=== PATIENT | female | born 1940 | race Caucasian/White ===

== ENCOUNTER → 2024-11-12 | Outpatient (CLI) | payer MEDICARE, OTHER, SELFPAY ==
[2024-11-12 12:17] LABS: Basophils % (Auto) 1 % (0-2.5); Eosinophils # (Auto) 0.2 Thou/mm3 (0.0-0.5); Eosinophils % (Auto) 4 % (0-10); Hematocrit 34.5 % (36.0-46.0); Hemoglobin 11.6 g/dL (12.0-16.0); Immature Granulocytes % (Auto) 0 % (0-0); Immature Granulocytes Auto 0.01 Thou/mm3 (0.00-0.00); Lymphocytes # (Auto) 1.8 Thou/mm3 (1.0-4.8); Lymphocytes % (Auto) 33 % (10-50); Mean Corpuscular HGB Conc 33.6 g/dl (31.0-37.0); Mean Corpuscular Hemoglobin 28.5 pg (25.0-35.0); Mean Corpuscular Volume 85 fL (80-100); Monocytes # (Auto) 0.4 Thou/mm3 (0.0-0.8); Monocytes % (Auto) 7 % (0-12); Neutrophils % (Auto) 56 % (37-80); Nucleated Red Blood Cell % 0 /100 WBC (0); Platelet Count 321 Thou/mm3 (140-440); RDW Standard Deviation 41.4 fL (36.4-46.3); Red Blood Count 4.07 Miln/mm3 (4.00-5.20); White Blood Count 5.4 Thou/mm3 (3.6-11.0)
[2024-11-12 12:55] LABS: Alanine Aminotransferase 8 U/L (10-49); Albumin, Serum 4.3 gm/dL (3.4-4.8); Albumin/Globulin Ratio 1.7 (1.2-2.2); Alkaline Phosphatase 123 U/L (46-116); Anion Gap 7 (7-16); Aspartate Amino Transferase 20 U/L (0-34); BUN/Creatinine Ratio 17 Ratio (12-20); Bilirubin,Total 0.3 mg/dL (0.3-1.2); Blood Urea Nitrogen 15 mg/dL (9-23); Calcium 9.4 mg/dL (8.3-10.6); Calcium (Corrected) 9.4 mg/dL (8.5-10.1); Carbon Dioxide 29.2 mMol/L (20.0-31.0); Cardiac Risk Estimate 1.9 RATIO (3.7-5.6); Chloride 98 mMol/L (98-107); Cholesterol 208 mg/dL (132-200); Creatinine (Component) 0.9 mg/dL (0.6-1.3); Globulin 2.6 gm/dL (2.3-3.5); Glucose 87 mg/dL (74-106); HDL Cholesterol 110 mg/dL (40-60); LDL Cholesterol,Calculated 64 mg/dL (0-130); Osmolality,Calculated 268 (275-295); Potassium 4.8 mMol/L (3.4-5.1); Sodium 134 mMol/L (136-145); Thyroid Stimulating Hormone 1.78 uIU/mL (0.55-4.78); Total Protein 6.9 gm/dL (5.7-8.2); Triglycerides 169 mg/dL (30-150); eGFR > 60 See Note
== END | disposition home or self-care (01) ==
LOC: COPL 11:23
PROVIDERS: PCP Family Medicine; Referring Provider Family Medicine; Visit Provider Family Medicine
DX: Z13.1 Encounter for screening for diabetes mellitus (principal); E78.1 Pure hyperglyceridemia; D50.0 Iron deficiency anemia secondary to blood loss (chronic); E03.2 Hypothyroidism due to medicaments and other exogenous substances
CPT/HCPCS: 36415; 80053; 80061; 84443; 85025

== ENCOUNTER → 2025-03-17 | Outpatient (CLI) | payer MEDICARE, OTHER, SELFPAY ==
--- NOTE | 2025-03-17 14:44 | XR_ITS ---
Examination: Knee, left , 3 views Technique: Knee AP, lateral, oblique 3 views Date and time of exam: March 17, 2025 1456 hours Comparison October 12, 2015 INDICATIONS: Patient fell 3 days ago with injury to the knee, knee pain. FINDINGS: Total left knee arthroplasty. Satisfactory alignment No loosening of the prosthetic components 4.6 cm calcification in the posterior joint space, likely large ossified joint body IMPRESSION: No acute fracture
[2025-03-17 16:56] LABS: Basophils # (Auto) 0.0 Thou/mm3 (0.0-0.2); Basophils % (Auto) 0 % (0-2.5); Eosinophils # (Auto) 0.1 Thou/mm3 (0.0-0.5); Eosinophils % (Auto) 2 % (0-10); Hematocrit 30.6 % (36.0-46.0); Hemoglobin 10.1 g/dL (12.0-16.0); Immature Granulocytes Auto 0.02 Thou/mm3 (0.00-0.00); Lymphocytes # (Auto) 1.2 Thou/mm3 (1.0-4.8); Lymphocytes % (Auto) 25 % (10-50); Mean Corpuscular HGB Conc 33.0 g/dl (31.0-37.0); Mean Corpuscular Hemoglobin 27.6 pg (25.0-35.0); Mean Corpuscular Volume 84 fL (80-100); Monocytes # (Auto) 0.4 Thou/mm3 (0.0-0.8); Monocytes % (Auto) 8 % (0-12); Neutrophils # (Auto) 3.1 Thou/mm3 (1.8-7.7); Neutrophils % (Auto) 65 % (37-80); Nucleated Red Blood Cell # 0.00 Thou/mm3 (0.00-0.00); Nucleated Red Blood Cell % 0 /100 WBC (0); Platelet Count 337 Thou/mm3 (140-440); RDW Standard Deviation 40.1 fL (36.4-46.3); Red Blood Count 3.66 Miln/mm3 (4.00-5.20); White Blood Count 4.8 Thou/mm3 (3.6-11.0)
[2025-03-17 17:13] LABS: Free T4 (Free Thyroxine) 1.03 ng/dL (0.89-1.76); Thyroid Stimulating Hormone 2.01 uIU/mL (0.55-4.78)
== END | disposition home or self-care (01) ==
LOC: CDIM 14:27
PROVIDERS: PCP Family Medicine; Referring Provider Family Medicine; Visit Provider Family Medicine
DX: S89.92XA Unspecified injury of left lower leg, initial encounter (principal); W19.XXXA Unspecified fall, initial encounter
CPT/HCPCS: 36415; 73562; 84439; 84443; 85025

== ENCOUNTER → 2025-03-22 | Outpatient (CLI) | payer MEDICARE, OTHER, SELFPAY ==
[2025-03-22 14:16] LABS: OBS QC OK? Yes
[2025-03-22 18:33] LABS: OBS Developer Lot # 4-24-551749; OBS Performed By BF; Occult Blood, Stool Negative (Negative)
== END | disposition home or self-care (01) ==
LOC: SLDO 14:11
PROVIDERS: Referring Provider Family Medicine; Visit Provider Family Medicine
DX: Z12.11 Encounter for screening for malignant neoplasm of colon (principal)
CPT/HCPCS: 82270

== ENCOUNTER → 2025-03-31 | Outpatient (CLI) | payer MEDICARE, OTHER, SELFPAY ==
--- NOTE | 2025-03-31 14:26 | XR_ITS ---
EXAMINATION: Cervical spine, 5 views Technique: Cervical spine AP, AP odontoid, lateral, bilateral obliques, 5 views Exam date and time: March 31, 2025, 1429 hrs. Indications: Neck pain beginning 5 years ago. Findings: Adequate alignment cervical vertebral bodies. Severe osteopenia. Intact odontoid. No cervical fracture. Advanced disc narrowing C3-C4, C4-C5, C5-C6, C6-C7 with anterior and posterior osteophyte formation and moderate to advanced diffuse neuroforaminal stenosis Impression: Advanced degenerative disc disease C3-C4, C4-C5, C5-C6, C6-C7 with significant bilateral neural foraminal stenosis.
== END | disposition home or self-care (01) ==
LOC: CDIM 14:10
PROVIDERS: PCP Family Medicine; Referring Provider Family Medicine; Visit Provider Family Medicine
DX: M50.31 Other cervical disc degeneration, high cervical region (principal); M48.02 Spinal stenosis, cervical region
CPT/HCPCS: 72050

== ENCOUNTER → 2025-04-24 | Outpatient (CLI) | payer MEDICARE, OTHER, SELFPAY ==
--- NOTE | 2025-04-24 16:15 | XR_ITS ---
Examination: MRI cervical spine without intravenous contrast Date and time of exam: April 24, 2025, 1643 hrs. Indications: Neck pain radiating to the arms with numbness in the hands beginning 6 months ago Technique: Multiple axial and sagittal sections of the cervical spine to been obtained. T2 weighted sagittal sections, TR 3, 270, TE 117 T1-weighted sagittal sections, TR 500, TE 11 T1-weighted axial sections, TR 607, TE 12, axial sections TR 18, TE 27 and T2 weighted transverse sections, TR 3920, TE 122. Findings: Straightening normal cervical lordosis Advanced disc narrowing C3-C4, C4-C5, C5-C6, C6-C7 Diffuse cervical disc desiccation. No localized enlargement cervical cord C2-C3 advanced right neural foraminal stenosis C3-C4 2 mm central subarticular osteophyte disc complex with advanced bilateral neural foraminal stenosis C4-C5 4 mm central osteophyte disc complex, advanced bilateral neural foraminal stenosis C5-C6 2 mm central subarticular osteophyte disc complex, advanced right neural foraminal stenosis C6-C7 2 mm central subarticular osteophyte disc complex, advanced bilateral neural foraminal stenosis C7-T1 advanced right neural foraminal stenosis Impression: Advanced degenerative disc disease C3-C4, C4-C5, C5-C6, C6-C7 Advanced bilateral neural foraminal stenosis as above
== END | disposition home or self-care (01) ==
LOC: SMRI 16:00
PROVIDERS: PCP Family Medicine; Referring Provider Family Medicine; Visit Provider Family Medicine
DX: M50.31 Other cervical disc degeneration, high cervical region (principal); M48.02 Spinal stenosis, cervical region
CPT/HCPCS: 72141

== ENCOUNTER → 2025-06-10 | Outpatient (CLI) | payer MEDICARE, OTHER, SELFPAY | END | disposition home or self-care (01) | LOC: SLDO 14:17 | PROVIDERS: PCP Family Medicine; Referring Provider Family Medicine; Visit Provider Family Medicine | DX: N39.0 Urinary tract infection, site not specified (principal) | CPT/HCPCS: 87086 ==

== ENCOUNTER 2025-06-28 11:33 | Emergency (ER) | payer MEDICARE, OTHER, SELFPAY ==
[2025-06-28] VITALS (9 sets, daily range): BP systolic 110–174; BP diastolic 62–92; PULSE 85–98; RESP 14–19; TEMP 36.9; O2SAT 97–100; BMI 26.0
--- NOTE | 2025-06-28 11:42 | PD.EDADULT ---
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 She reports intermittent headaches ?for quite a while,? with worsening occipital/nape pain over the past week. According to her granddaughter, the patient has also experienced episodes of confusion and forgetfulness during this time. She takes aspirin 81 mg daily and denies use of any other anticoagulants. She denies fever, chills, chest pain, cough, dyspnea, abdominal pain, nausea, vomiting, diarrhea, or urinary symptoms. Related Data Home Medications ?Medication ?Instructions ?Recorded ?Confirmed amlodipine 5 mg tablet (Norvasc) 5 mg PO HS #0 tabs 10/16/13 06/28/25 celecoxib 200 mg capsule (Celebrex) 200 mg PO BID #0 caps 10/16/13 06/28/25 cholecalciferol (vitamin D3) 125 1 tab [employer] DAILY ##0 10/16/13 06/28/25 mcg (5,000 unit) tablet (Vitamin D3) conjugated estrogens 0.625 mg 0.625 mg PO QDAY #0 tabs 10/16/13 06/28/25 tablet (Premarin) simvastatin 40 mg tablet 1 tab PO HS ##0 10/16/13 06/28/25 aspirin 81 mg tablet,delayed 81 mg PO QDAY 01/11/20 06/28/25 release (Rasta Low Dose Aspirin) docusate sodium 100 mg capsule 100 mg PO QDAY 01/11/20 06/28/25 (Stool Softener) losartan 50 mg tablet 50 mg PO QDAY 01/11/20 06/28/25 nortriptyline 25 mg capsule 25 mg PO QDAY 01/11/20 06/28/25 levothyroxine 25 mcg tablet 25 mcg PO QDAY hypothryroid 06/28/25 06/28/25 Allergies Allergy/AdvReac Type Severity Reaction Status Date / Time No Known Allergies Allergy Verified 06/28/25 11:39 Review of Systems Review of Systems Systems Reviewed: All systems reviewed, normal except as documented Past Medical History Past Medical History CARDIAC: Positive Hypercholesterolemia, Edema (LEFT FOLLOWING KNEE SURGERY) and Hypertension GASTROINTESTINAL: Positive Gastrointestinal Disorders and Obesity GENITOURINARY: Positive Genitourinary Disorders and Kidney Stones REPRODUCTIVE: Positive Previous Pregnancies () MUSCULOSKELETAL: Positive Musculoskeletal Disorders and Arthritis (GENERALIZED) ENDOCRINE: Positive Endocrine Disorders and Hypothyroidism OTHER HISTORY: Positive Hospitalization, Falls, Measles and Mumps Family History FAMILY HISTORY: Positive Family Cancer (SISTER(BREAST CA),BROTHERS X2(UNKNOWN)) Surgical History SURGICAL: Positive Eye Surgery (BILATERAL CORNEAL TRANSPLANT), Joint Replacement, Neurologic Surgery (Aneurysm repair with coils) and Hysterectomy Social History SMOKING STATUS: Never smoker ED Exam General Limitations: Present no limitations General appearance: Present alert and in no apparent distress Head Head exam: Present atraumatic Eye Eye exam: Present normal appearance, PERRL and EOMI ENT ENT exam: Present normal exam, normal oropharynx and mucous membranes moist Neck Neck exam: Present normal inspection, full ROM and trachea midline Chest Chest inspection: Present normal inspection and symmetric chest wall rise Respiratory Respiratory exam: Present normal lung sounds bilaterally; Absent respiratory distress Cardiovascular Cardiovascular exam: Present regular rate, normal rhythm and normal heart sounds Abdominal Exam Abdominal exam: Present soft; Absent distention, tenderness or guarding Extremities Exam Extremities exam: Present normal inspection and full ROM Neurological Exam Neurological exam: Present alert, oriented X3, CN II-XII intact and other (strong in all extremities sensation intact, no focal neurodeficits) Psychiatric Psychiatric exam: Present normal affect and normal mood Skin Skin exam: Present warm, dry, intact and normal color Course Quality Measures none Orders Category Date Time Status CT Screening NOW Care 06/28/25 12:26 Completed Miscellaneous Nursing Order NOW Care 06/28/25 11:57 Completed Transfuse,blood/blood products NOW Care 06/28/25 12:27 Completed Referral - Optical Glass Etcher Stat Cons 06/28/25 11:[address] angio carotid w head w Stat Exams 06/28/25 12:25 Completed XR chest 1V post procedure Stat Exams 06/28/25 14:24 Completed CBC Stat Lab 06/28/25 12:00 Completed CMP [Comprehensive Metabolic Panel] Stat Lab 06/28/25 12:00 Completed INR [Prothrombin Time with INR] Stat Lab 06/28/25 12:00 Completed Type and Screen Stat Lab 06/28/25 12:46 Completed Nicardipine/Ns 20Mg Ivpb [Cardene Ivpb] Med 06/28/25 12:07 Discontinued 20 mg in 200 ml IV 5 mg/hr levETIRAcetam INJ [Keppra Inj] Med 06/28/25 12:26 Discontinued 1,000 mg IVP X1 ONE Vital Signs Vital signs: Vital Signs Temperature 98.4 F 06/28/25 11:55 Pulse Rate 90 06/28/25 11:55 Respiratory Rate 19 06/28/25 11:55 Blood Pressure 174/92 H 06/28/25 11:55 Pulse Oximetry (%) 100 06/28/25 11:55 Oxygen Delivery Method Room Air 06/28/25 11:55 Pulse ox is 100% on room air which is adequate. Critical Care Time Critical Care Time Critical Care Time: Yes Total Critical Care Time (min.): 35 Attestation: The high probability of sudden, clinically significant deterioration in the patient's condition required the highest level of my preparedness to intervene urgently. The services I provided to this patient were to treat and/or prevent clinically significant deterioration. Services included the following: chart data review, reviewing nursing notes and/or old charts, documentation time, regulatory consultant collaboration regarding findings and treatment options, medication orders and management, direct patient care, vital sign assessments and ordering, interpreting and reviewing diagnostic studies and lab tests. Aggregate critical care time includes only time during which I was engaged in work directly related to the patient's care, as described above, whether at bedside or elsewhere in the Emergency Department. It did not include time spent performing other reported procedures or the services of residents, students, nurses or physician assistants. Discharge Plan Plan Patient Disposition: [facility] Care [facility] Facility Pt Being Transferred to: [facility] Service Needed for Transfer: Neurosurgery Prescriptions/Referrals Prescriptions/Med Rec: No Action celecoxib [Celebrex] 200 MG capsule 200 mg PO BID Qty: 0 amlodipine [Norvasc] 5 MG tablet 5 mg PO HS Qty: 0 simvastatin 40 MG tablet 1 tab PO HS Qty: 0 conjugated estrogens [Premarin] 0.625 MG tablet 0.625 mg PO QDAY Qty: 0 cholecalciferol (vitamin D3) [Vitamin D3] 5,000 UNIT tablet 1 tab [employer] DAILY Qty: 0 losartan 50 mg Tablet 50 mg PO QDAY aspirin [Rasta Low Dose Aspirin] 81 mg Tablet,Delayed Release (Dr/Ec) 81 mg PO QDAY nortriptyline 25 mg Capsule 25 mg PO QDAY docusate sodium [Stool Softener] 100 mg Capsule 100 mg PO QDAY levothyroxine 25 mcg tablet 25 mcg PO QDAY Rx Instructions: 25mgc po q day Referrals: Aries Spaulding MD [Primary Care Provider, [facility]] - In 1 week Problem List Clinical Impression: Intracranial hemorrhage, Intracranial aneurysm Patient/Caregiver Discharge Instructions Print Language: Malian Stand Alone Forms: Keesha Award Info., Patient Portal Info Letter MDM Narrative MDM hospital course (for use when minimal MDM required): IMirella, elver scribing for and in the presence of Dr. White. Patient is an 85-year-old female with medical history notable for intracranial aneurysm status post coiling many years ago is in the emergency department with concerns for head bleed. Vital signs and exam as listed. CT scan done earlier today as an outpatient identified an intracranial hemorrhage, read as 14 mm focus of hemorrhage with edema in the right parietal lobe. Patient is on aspirin and Celebrex however no other blood thinners. Patient took her medications this morning. Patient was placed in resuscitation room, IV access obtained. Head of the bed kept at 45 degrees. There are no blood thinners to reverse. Will assess patient's platelets to see if platelets need to be transfused. Patient blood pressure on arrival was greater than 170. Placed patient on nicardipine drip with a systolic blood pressure goal for less than 140. Initiated transfer for neurosurgery, to a facility that can better assess spontaneous intracranial hemorrhages. Patient is hemodynamically stable not in distress. 1218: I spoke with Jocelynn, transfer nurse at [facility]. Discussed patients PMHx, HPI, ED course, exam findings, labs, and radiology results. States she will present the case to their neurosurgery team. 1224: I spoke with neurosurgeon Dr. Hillman at [facility]. Discussed patients PMHx, HPI, ED course, exam findings, labs, and radiology results. He recommends starting the patient on Keppra, 2 units of platelets, and CT angio head and neck. Requests we call back after CTA is resulted. 1228: CT made aware of stat CTA request. 1258: I updated family and patient on plan. 1435: CT angio has been performed and pending read. I spoke with our radiologist Dr. Milan and states he will read the images now. 1518: I spoke with neurosurgeon Dr. Hillman. Discussed CTA results. He is requesting the patient to be admitted to ICU there, receive DDAVP for platelets, and MRI brain w/wo contrast. Patient has been accepted for transfer. Clinical Information Provided by: patient and family (Daughter adds to HPI) Medical Records reviewed [facility] Medical Records additional comments: I reviewed ED visit on 09/21/2023 for sore throat Meds/Rx considered, not ordered None Labs/Rad/Tests considered, not ordered None Chronic Illness/Social Conditions which may negatively complicate care or outcome(s)-explain: None or not applicable EKG EKG not done Labs Labs: see narrative above Imaging Imaging interpretation: see narrative above Imaging Interpretation(s): OUTPATIENT HEAD CT PERFORMED TODAY Ordering Physician: Aries Spaulding MD Date of Service: 06/28/25 Procedure(s): CT head/brain wo con Accession Number(s): [id number] cc: Latrell Milan MD; Aries Spaulding MD~ Examination: CT brain head without contrast. 2-D sagittal coronal reconstructions Date and time of exam: June 28, 2025, 1043 hours INDICATIONS: Altered mental status today, history basilar artery aneurysm CTDI: vol (mGy): 45.8 DLP: (mGycm): 818 Technique: Multiple CT axial sections of the brain have been obtained, 5 mm slice thickness. Contrast has not been administered. 2-D sagittal, coronal reconstructions have been obtained Low dose protocols were performed. One or more of the following dose reduction techniques were used; automated exposure control, adjustment of the mA and/or KV according to patient size, use of iterative reconstruction technique. Findings: Small focus of hemorrhage, 14 mm in the right parietal lobe with surrounding edema Ventricles are not enlarged Embolization material at the base of the skull for aneurysm Cranial vault intact IMPRESSION: 14 mm focus of hemorrhage with edema in the right parietal lobe, differential would include idiopathic hemorrhage, hemorrhage within the tumor, clinical correlation advised Recommend CT brain scan post contrast follow-up, consider CTA brain post intravenous contrast Dictated By: Latrell Milan MD Signed By: <Electronically signed by Latrell Milan MD in OV> 06/28/25 1110 Ordering Physician: Patience White MD Date of Service: 06/28/25 Procedure(s): CT angio carotid w head w Accession Number(s): [id number] cc: Eduin Villafuerte MD; Patience White MD; Aries Spaulding MD~ EXAMINATION: CT angio carotid w head w ORDERING PROVIDER: Patience White MD HISTORY: aneurysmal bleed TECHNIQUE: CT scanner was used in the volumetric, helical non-contrast acquisition of the head with 2-D and 3-D reformats created on a separate workstation and submitted for interpretation. Institutional dose reducing protocols were utilized. Imaging was performed during arterial phase after the C7 Isovue-370 intravenously. RADIATION DOSE: DLP 111 mGy-cm COMPARISON: 11/27/2009 [address] head. 08/17/[address] head. 10/01/2022, CTA head. 04/27/2019, MRA brain. 11/30/2016, noncontrast CT head. 11/19/2019, CT chest. FINDINGS: No high-grade stenosis of the cervical carotid or vertebral arteries. Mild calcific atherosclerotic disease of the bilateral carotid bifurcations. Moderate calcific narrowing of the right vertebral artery origin. There is bovine arch variant anatomy with left common carotid artery origin of the right brachiocephalic. The left vertebral artery originates off the left subclavian artery. There is mild vascular calcifications of the internal carotid arteries. Proximal middle, anterior, and posterior cerebral arteries are patent. Anterior communicating artery is without aneurysmal dilation. There is a dominant right posterior communicating artery. Again seen is a 4 x 5 mm basilar tip aneurysm with adjacent coils, appearing similar in size dating to at least 04/27/2019. Proximal superior cerebellar arteries are patent. Proximal anterior inferior and posterior inferior cerebellar arteries are patent. No additional new intracranial aneurysms are identified. The hyperdense area within the right superior parietal lobule is better seen on same day noncontrast head CT demonstrate some peripheral serpiginous vascularity, appearing to represent very tiny vessels. The area of adjacent hypodensity dates back to 08/17/2023. There is similar centrilobular emphysematous changes with areas of scarring in the right upper lobe. There is a 3 mm hypodense lesion within the left hemithyroid. No cervical lymphadenopathy is identified. There is effacement of the left piriform sinus. There is severe degenerative disc disease with osteophyte formation of the mid cervical spine. There is grade 1 retrolisthesis of C4 on C5. There is multilevel uncovertebral hypertrophy and facet arthrosis. IMPRESSION: 1. Similar 4 x 5 mm basilar tip aneurysm in the setting of prior coil embolization. 2. No intracranial high-grade stenosis, large vessel occlusion, or new aneurysmal dilation identified. 3. Hyperdense area in the right superior parietal lobule better appreciated on same day noncontrast head CT adjacent to grossly similar area of decreased density demonstrates serpiginous small vessels. While this could represent blood products, differential would also include neovascularization in the setting of prior area of ischemia, small underlying neoplasm, and vascular malformation. Correlation with pre and postcontrast MRI would be of benefit. 4. Effacement of the left piriform sinus, nonspecific. Consider direct visualization versus attention on follow-up. Dictated By: Eduin Villafuerte MD Signed By: <Electronically signed by Eduin Villafuerte MD in OV> 06/28/25 1898 Medication Administration(s) Medication Administration History Discontinued Medications Nicardipine/Sodium Chloride (Cardene Ivpb) 20 mg in 200 mls @ 50 mls/hr IV .Q4H PRN; Protocol PRN Reason: Per Protocol Stop: 07/28/25 12:06 Last Titration: 06/28/25 13:10 Dose: 0 mg/hr, 0 mls/hr Documented By: Titration: 06/28/25 12:52 Dose: 3 mg/hr, 30 mls/hr Documented By: Titration: 06/28/25 12:47 Dose: 3 mg/hr, 30 mls/hr Documented By: Titration: 06/28/25 12:42 Dose: 3 mg/hr, 30 mls/hr Documented By: Titration: 06/28/25 12:37 Dose: 10 mg/hr, 100 mls/hr Documented By: Titration: 06/28/25 12:32 Dose: 7.5 mg/hr, 75 mls/hr Documented By: Admin: 06/28/25 12:27 Dose: 5 mg/hr, 50 mls/hr Documented By: TM Levetiracetam (Levetiracetam Inj 100 Mg/Ml Vial 5ml) 1,000 mg IVP X1 ONE Stop: 06/28/25 12:27 Last Admin: 06/28/25 12:47 Dose: 1,000 mg Documented By: TM See above Diagnosis Diagnoses ruled out and/or further discussions: Intracranial hemorrhage Intracranial aneurysm
--- NOTE | 2025-06-28 12:25 | XR_ITS ---
EXAMINATION: CT angio carotid w head w ORDERING PROVIDER: Patience White MD HISTORY: aneurysmal bleed TECHNIQUE: CT scanner was used in the volumetric, helical non-contrast acquisition of the head with 2-D and 3-D reformats created on a separate workstation and submitted for interpretation. Institutional dose reducing protocols were utilized. Imaging was performed during arterial phase after the C7 Isovue-370 intravenously. RADIATION DOSE: DLP 111 mGy-cm COMPARISON: 11/27/2009 [address] head. 08/17/[address] head. 10/01/2022, CTA head. 04/27/2019, MRA brain. 11/30/2016, noncontrast CT head. 11/19/2019, CT chest. FINDINGS: No high-grade stenosis of the cervical carotid or vertebral arteries. Mild calcific atherosclerotic disease of the bilateral carotid bifurcations. Moderate calcific narrowing of the right vertebral artery origin. There is bovine arch variant anatomy with left common carotid artery origin of the right brachiocephalic. The left vertebral artery originates off the left subclavian artery. There is mild vascular calcifications of the internal carotid arteries. Proximal middle, anterior, and posterior cerebral arteries are patent. Anterior communicating artery is without aneurysmal dilation. There is a dominant right posterior communicating artery. Again seen is a 4 x 5 mm basilar tip aneurysm with adjacent coils, appearing similar in size dating to at least 04/27/2019. Proximal superior cerebellar arteries are patent. Proximal anterior inferior and posterior inferior cerebellar arteries are patent. No additional new intracranial aneurysms are identified. The hyperdense area within the right superior parietal lobule is better seen on same day noncontrast head CT demonstrate some peripheral serpiginous vascularity, appearing to represent very tiny vessels. The area of adjacent hypodensity dates back to 08/17/2023. There is similar centrilobular emphysematous changes with areas of scarring in the right upper lobe. There is a 3 mm hypodense lesion within the left hemithyroid. No cervical lymphadenopathy is identified. There is effacement of the left piriform sinus. There is severe degenerative disc disease with osteophyte formation of the mid cervical spine. There is grade 1 retrolisthesis of C4 on C5. There is multilevel uncovertebral hypertrophy and facet arthrosis. IMPRESSION: 1. Similar 4 x 5 mm basilar tip aneurysm in the setting of prior coil embolization. 2. No intracranial high-grade stenosis, large vessel occlusion, or new aneurysmal dilation identified. 3. Hyperdense area in the right superior parietal lobule better appreciated on same day noncontrast head CT adjacent to grossly similar area of decreased density demonstrates serpiginous small vessels. While this could represent blood products, differential would also include neovascularization in the setting of prior area of ischemia, small underlying neoplasm, and vascular malformation. Correlation with pre and postcontrast MRI would be of benefit. 4. Effacement of the left piriform sinus, nonspecific. Consider direct visualization versus attention on follow-up.
[2025-06-28] MEDS: NICARDIPINE/NS 20MG IVPB 20 MG/200 ML BAG 50 MG IV (12:27)
[2025-06-28 12:37] LABS: Basophils # (Auto) 0.0 Thou/mm3 (0.0-0.2); Basophils % (Auto) 0 % (0-2.5); Eosinophils # (Auto) 0.0 Thou/mm3 (0.0-0.5); Eosinophils % (Auto) 1 % (0-10); Hematocrit 31.5 % (36.0-46.0); Hemoglobin 10.7 g/dL (12.0-16.0); Immature Granulocytes Auto 0.04 Thou/mm3 (0.00-0.00); Lymphocytes # (Auto) 1.3 Thou/mm3 (1.0-4.8); Lymphocytes % (Auto) 15 % (10-50); Mean Corpuscular HGB Conc 34.0 g/dl (31.0-37.0); Mean Corpuscular Hemoglobin 26.2 pg (25.0-35.0); Mean Corpuscular Volume 77 fL (80-100); Monocytes # (Auto) 0.3 Thou/mm3 (0.0-0.8); Monocytes % (Auto) 4 % (0-12); Neutrophils # (Auto) 7.1 Thou/mm3 (1.8-7.7); Neutrophils % (Auto) 81 % (37-80); Nucleated Red Blood Cell # 0.00 Thou/mm3 (0.00-0.00); Nucleated Red Blood Cell % 0 /100 WBC (0); Platelet Count 453 Thou/mm3 (140-440); RDW Standard Deviation 39.2 fL (36.4-46.3); Red Blood Count 4.09 Miln/mm3 (4.00-5.20); White Blood Count 8.8 Thou/mm3 (3.6-11.0)
--- NOTE | 2025-06-28 12:41 | PC.CM ---
1245 I started transfer packet and I will make a CD once the CTA is completed. [address] White with Dr. Hillman (neurosurgery) and Dr. Chavez ED via conference call. Dr. White presented the patient PMHx, HPI, ED course, exam findings, labs, and radiology results. Dr. Hillman recommends starting the patient on Keppra, 2 units of platelets, and CT angio head and neck. Requests we call back after CTA is resulted. I will follow up once CTA is complete. 1200 I received a request to transfer patient patient for brain bleed. I contacted [facility] and initiated a transfer. I pushed over images and I faxed over information to [facility].
[2025-06-28] MEDS: levETIRAcetam INJ 100 MG/ML VIAL 5ML 1000 MG IVP (12:47)
[2025-06-28 12:54] LABS: INR 0.9 (0.9-1.3); Prothrombin Time 10.1 Seconds (9.0-12.2)
[2025-06-28 13:06] LABS: Alanine Aminotransferase < 7 U/L (10-49); Albumin, Serum 4.7 gm/dL (3.4-4.8); Albumin/Globulin Ratio 1.6 (1.2-2.2); Alkaline Phosphatase 98 U/L (46-116); Anion Gap 9 (7-16); Aspartate Amino Transferase 20 U/L (0-34); BUN/Creatinine Ratio 13 Ratio (12-20); Bilirubin,Total 0.2 mg/dL (0.3-1.2); Blood Urea Nitrogen 10 mg/dL (9-23); Calcium 9.3 mg/dL (8.3-10.6); Calcium (Corrected) 9.3 mg/dL (8.5-10.1); Carbon Dioxide 28.6 mMol/L (20.0-31.0); Chloride 85 mMol/L (98-107); Creatinine (Component) 0.8 mg/dL (0.6-1.3); Estimated Creatinine Clearance 38.6 mL/min (>60); Globulin 2.9 gm/dL (2.3-3.5); Glucose 106 mg/dL (74-106); Osmolality,Calculated 246 (275-295); Potassium 4.1 mMol/L (3.4-5.1); Sodium 123 mMol/L (136-145); Total Protein 7.6 gm/dL (5.7-8.2); eGFR > 60 See Note
--- NOTE | 2025-06-28 13:33 | PC.CM ---
Addendum entered by Jennifer Rae RN 06/28/25 18:34: Patient left at 1708. I called [facility] transfer center and gave then the rock picker time Addendum entered by Jennifer Rae RN 06/28/25 17:03: 1630 I called and set up a stat transport with [facility]. Transfer packet with 1 CD handed to charge nurse Ariel. I faxed paperwork to [facility]. Addendum entered by Jennifer Rae RN 06/28/25 15:56: 1525 Patient has been accepted by [facility] with Dr. Beckie Alicea. Number to call report is [phone]. I will make transfer packet and make a CD. Addendum entered by Jennifer Rae RN 06/28/25 14:43: 1350 I met with mom to let her know patient has been accepted by [facility] and I needed her signature. Mother declined to sign stating she was not happy with her sons care. She asked about ABX and wanted to speak to the doctor. I let her know was in with a critical patient , but I would pass message along. Mother did not sign for transfer. Original Note: 1321 I contacted [facility] and I spoke to Beronica. She connected me to Kika in the ED and I connected Dr. Moran and Dr. White. Patient has been accepted to [facility] ED. I will make a transfer packet and make a CD. 1310 I received a referral to transfer patient for appendicitis.
--- NOTE | 2025-06-28 14:24 | XR_ITS ---
EXAMINATION: XR chest 1V ORDERING PROVIDER: Patience White MD HISTORY: tracheostomy replaced TECHNIQUE: Single portable AP radiograph of the chest. COMPARISON: 08/17/2023, chest radiographs. FINDINGS: Lines and Tubes: Multiple overlying monitoring leads. No tracheostomy tube is identified as clinically queried. Lungs: Increased lucency. Mildly hyperinflated. Similar-appearing scarring right upper lobe. No consolidation. Similar-appearing punctate left lower lung calcified granuloma. Pleura: No pneumothorax or pleural effusion. Cardiomediastinal Silhouette: Calcifications aortic arch. Soft Tissues/Bones: Similar moderate S-shaped scoliotic curvature. Osteopenia. Left shoulder arthroplasty changes. IMPRESSION: 1. Lines and tubes as above. No tracheostomy tube identified as clinically queried. 2. Emphysematous changes without acute pulmonary findings.
== END 2025-06-28 17:08 | disposition short-term general hospital (02) ==
PROVIDERS: Emergency Provider Emergency Medicine; PCP Family Medicine
DX: I62.9 Nontraumatic intracranial hemorrhage, unspecified (principal); I67.1 Cerebral aneurysm, nonruptured; Z79.82 Long term (current) use of aspirin; Z75.1 Person awaiting admission to adequate facility elsewhere
CPT/HCPCS: 36415; 70496; 70498; 80053; 85025; 85610; 86850; 86900; 86901; 86965; 96374; 99284; A4649; J1953; J2404; Q9967

== ENCOUNTER → 2025-06-28 | Outpatient (CLI) | payer MEDICARE, OTHER, SELFPAY ==
--- NOTE | 2025-06-28 10:26 | XR_ITS ---
Examination: CT brain head without contrast. 2-D sagittal coronal reconstructions Date and time of exam: June 28, 2025, 1043 hours INDICATIONS: Altered mental status today, history basilar artery aneurysm CTDI: vol (mGy): 45.8 DLP: (mGycm): 818 Technique: Multiple CT axial sections of the brain have been obtained, 5 mm slice thickness. Contrast has not been administered. 2-D sagittal, coronal reconstructions have been obtained Low dose protocols were performed. One or more of the following dose reduction techniques were used; automated exposure control, adjustment of the mA and/or KV according to patient size, use of iterative reconstruction technique. Findings: Small focus of hemorrhage, 14 mm in the right parietal lobe with surrounding edema Ventricles are not enlarged Embolization material at the base of the skull for aneurysm Cranial vault intact IMPRESSION: 14 mm focus of hemorrhage with edema in the right parietal lobe, differential would include idiopathic hemorrhage, hemorrhage within the tumor, clinical correlation advised Recommend CT brain scan post contrast follow-up, consider CTA brain post intravenous contrast
== END | disposition home or self-care (01) ==
PROVIDERS: PCP Family Medicine; Referring Provider Family Medicine; Visit Provider Family Medicine
DX: I61.1 Nontraumatic intracerebral hemorrhage in hemisphere, cortical (principal)
CPT/HCPCS: 70450

== ENCOUNTER → 2025-07-08 | Outpatient (CLI) | payer MEDICARE, OTHER, SELFPAY ==
[2025-07-08 17:08] LABS: Albumin, Serum 4.1 gm/dL (3.4-4.8); Anion Gap 10 (7-16); BUN/Creatinine Ratio 16 Ratio (12-20); Basophils # (Auto) 0.0 Thou/mm3 (0.0-0.2); Basophils % (Auto) 0 % (0-2.5); Blood Urea Nitrogen 13 mg/dL (9-23); Calcium 8.6 mg/dL (8.3-10.6); Calcium (Corrected) 8.6 mg/dL (8.5-10.1); Carbon Dioxide 27.8 mMol/L (20.0-31.0); Chloride 103 mMol/L (98-107); Creatinine (Component) 0.8 mg/dL (0.6-1.3); Eosinophils # (Auto) 0.2 Thou/mm3 (0.0-0.5); Eosinophils % (Auto) 3 % (0-10); Glucose 133 mg/dL (74-106); Hematocrit 27.2 % (36.0-46.0); Immature Granulocytes Auto 0.01 Thou/mm3 (0.00-0.00); Lymphocytes # (Auto) 1.5 Thou/mm3 (1.0-4.8); Lymphocytes % (Auto) 31 % (10-50); Mean Corpuscular HGB Conc 32.0 g/dl (31.0-37.0); Mean Corpuscular Hemoglobin 27.1 pg (25.0-35.0); Mean Corpuscular Volume 85 fL (80-100); Monocytes # (Auto) 0.4 Thou/mm3 (0.0-0.8); Monocytes % (Auto) 8 % (0-12); Neutrophils # (Auto) 2.7 Thou/mm3 (1.8-7.7); Neutrophils % (Auto) 58 % (37-80); Nucleated Red Blood Cell # 0.00 Thou/mm3 (0.00-0.00); Nucleated Red Blood Cell % 0 /100 WBC (0); Osmolality,Calculated 283 (275-295); Phosphorous 2.3 mg/dL (2.4-5.1); Platelet Count 361 Thou/mm3 (140-440); Potassium 4.0 mMol/L (3.4-5.1); RDW Standard Deviation 50.1 fL (36.4-46.3); Red Blood Count 3.21 Miln/mm3 (4.00-5.20); Sodium 141 mMol/L (136-145); White Blood Count 4.8 Thou/mm3 (3.6-11.0); eGFR > 60 See Note
[2025-07-08 17:10] LABS: Hemoglobin 8.7 g/dL (12.0-16.0)
== END | disposition home or self-care (01) ==
LOC: COPL 15:30
PROVIDERS: PCP Family Medicine; Referring Provider Family Medicine; Visit Provider Family Medicine
DX: D50.0 Iron deficiency anemia secondary to blood loss (chronic) (principal); Z13.1 Encounter for screening for diabetes mellitus
CPT/HCPCS: 36415; 80069; 85025

== ENCOUNTER → 2025-07-22 | Outpatient (CLI) | payer MEDICARE, OTHER, SELFPAY ==
[2025-07-22 13:15] LABS: Basophils # (Auto) 0.0 Thou/mm3 (0.0-0.2); Basophils % (Auto) 1 % (0-2.5); Eosinophils # (Auto) 0.3 Thou/mm3 (0.0-0.5); Eosinophils % (Auto) 4 % (0-10); Hematocrit 30.4 % (36.0-46.0); Hemoglobin 9.6 g/dL (12.0-16.0); Immature Granulocytes Auto 0.01 Thou/mm3 (0.00-0.00); Lymphocytes # (Auto) 1.7 Thou/mm3 (1.0-4.8); Lymphocytes % (Auto) 27 % (10-50); Mean Corpuscular HGB Conc 31.6 g/dl (31.0-37.0); Mean Corpuscular Hemoglobin 26.0 pg (25.0-35.0); Mean Corpuscular Volume 82 fL (80-100); Monocytes # (Auto) 0.5 Thou/mm3 (0.0-0.8); Monocytes % (Auto) 8 % (0-12); Neutrophils # (Auto) 3.8 Thou/mm3 (1.8-7.7); Neutrophils % (Auto) 61 % (37-80); Nucleated Red Blood Cell # 0.00 Thou/mm3 (0.00-0.00); Nucleated Red Blood Cell % 0 /100 WBC (0); Platelet Count 536 Thou/mm3 (140-440); RDW Standard Deviation 47.2 fL (36.4-46.3); Red Blood Count 3.69 Miln/mm3 (4.00-5.20); White Blood Count 6.3 Thou/mm3 (3.6-11.0)
[2025-07-22 13:33] LABS: Albumin, Serum 4.6 gm/dL (3.4-4.8); Anion Gap 10 (7-16); BUN/Creatinine Ratio 28 Ratio (12-20); Blood Urea Nitrogen 28 mg/dL (9-23); Calcium 9.0 mg/dL (8.3-10.6); Calcium (Corrected) 9.0 mg/dL (8.5-10.1); Carbon Dioxide 26.1 mMol/L (20.0-31.0); Chloride 99 mMol/L (98-107); Creatinine (Component) 1.0 mg/dL (0.6-1.3); Free T4 (Free Thyroxine) 1.30 ng/dL (0.89-1.76); Glucose 115 mg/dL (74-106); Osmolality,Calculated 276 (275-295); Phosphorous 3.1 mg/dL (2.4-5.1); Potassium 4.2 mMol/L (3.4-5.1); Sodium 135 mMol/L (136-145); Thyroid Stimulating Hormone 1.81 uIU/mL (0.55-4.78); eGFR 55 See Note
== END | disposition home or self-care (01) ==
LOC: COPL 11:57
PROVIDERS: PCP Family Medicine; Referring Provider Family Medicine; Visit Provider Family Medicine
DX: D50.0 Iron deficiency anemia secondary to blood loss (chronic) (principal); E03.2 Hypothyroidism due to medicaments and other exogenous substances; Z13.1 Encounter for screening for diabetes mellitus
CPT/HCPCS: 36415; 80069; 84439; 84443; 85025